=== PATIENT | female | born 1975 | race African-American/Black ===

== ENCOUNTER 2019-11-28 18:28 | Emergency (ER) | payer MEDICAID ==
[~2019-11-28] VITALS: Ht 157.5 cm; Wt 81.6 kg
[2019-11-28] MEDS ORDERED: DEXAMETHASONE 10 MG/ML VIAL IM ONE (20:15)
[2019-11-28 20:23] VITALS: BP 135/85
== END 2019-11-28 20:25 | disposition home or self-care (01) ==
LOC: ER 18:28
DX: T78.49XA Other allergy, initial encounter (principal); X58.XXXA Exposure to other specified factors, initial encounter; Z88.0 Allergy status to penicillin
CPT/HCPCS: 96372; 99283; J1100

== ENCOUNTER 2020-06-07 11:23 | Emergency (ER) | payer MEDICAID ==
[~2020-06-07] VITALS: Ht 160 cm; Wt 72.5 kg
[2020-06-07] MEDS ORDERED: ACETAMINOPHEN 325MG TABLET PO ONE (12:30)
[2020-06-07 14:16] LABS: CLARITY URINE TURBID (CLEAR); COLOR URINE DARK YELLOW (YELLOW); KETONES URINE TRACE (NEGATIVE); LEUKOCYTE ESTERASE URINE NEGATIVE (NEGATIVE); NITRITE URINE NEGATIVE (NEGATIVE); OCCULT BLOOD URINE NEGATIVE (NEGATIVE); PROTEIN URINE TRACE (NEGATIVE); SPECIFIC GRAVITY URINE 1.034 (1.005-1.030); UROBILINOGEN URINE 0.2 E.U./dL (0.2-1.0)
[2020-06-07 14:22] LABS: UCG SCREEN NEGATIVE
[2020-06-07] MEDS ORDERED: DEXAMETHASONE 4MG TABLET PO ONE (15:15)
[2020-06-07 15:40] VITALS: BP 122/78
== END 2020-06-07 15:40 | disposition home or self-care (01) ==
LOC: ER 11:23
DX: U07.1 COVID-19 (principal); J18.9 Pneumonia, unspecified organism
CPT/HCPCS: 71045; 81003; 81025; 87635; 93005; 99285; C9803; J8540

== ENCOUNTER 2021-08-27 06:57 | Emergency (ER) | payer MEDICAID ==
[~2021-08-27] VITALS: Ht 157.5 cm; Wt 78.0 kg
[2021-08-27] MEDS ORDERED: DEXAMETHASONE 4MG TABLET PO ONE (09:00)
[2021-08-27 09:16] LABS: BASOPHILS % 0.3 % (0.0-2.0); EOSINOPHILS % 0.1 % (0.0-5.0); HEMATOCRIT. 38.3 % (36.0-48.0); HEMOGLOBIN. 13.2 g/dL (12.0-16.0); LYMPHOCYTES % 11.5 % (20.0-50.0); MEAN CORPUSCULAR HEMOGLOBIN 28.2 pg (28.0-32.0); MEAN PLATELET VOLUME 9.9 fl (7.4-10.4); MONOCYTES % 8.4 % (2.0-8.0); NEUTROPHILS % 79.7 % (40.0-76.0); PLATELET 210 x1000/uL (130-400); RED BLOOD CELL COUNT 4.67 mill/uL (4.2-5.4); RED CELL DISTRIBUTION WIDTH 14.3 % (11.6-14.6)
[2021-08-27 09:22] LABS: CHLORIDE 104 mEq/L (98-107)
[2021-08-27] MEDS ORDERED: DEXTL MT (10:47)
[2021-08-27] MEDS ORDERED: KETOROLAC 15MG/ML VIAL IM NR (11:00)
[2021-08-27 11:01] VITALS: BP 127/89
== END 2021-08-27 11:02 | disposition home or self-care (01) ==
LOC: ER 08:28
DX: J06.9 Acute upper respiratory infection, unspecified (principal); R00.0 Tachycardia, unspecified; Z86.16 Personal history of COVID-19
CPT/HCPCS: 36415; 71045; 80053; 83880; 84484; 85025; 93005; 99285; Z7610; J8540

== ENCOUNTER 2021-11-07 03:07 | Emergency (ER) | payer MEDICAID, OTHER ==
[~2021-11-07] VITALS: Ht 157.5 cm; Wt 87.5 kg
[~2021-11-07 03:07] MED LIST: DEXTL MT
[2021-11-07 03:09] VITALS: BP 150/86
[2021-11-07] MEDS ORDERED: KETOROLAC 30MG/ML VIAL IM ONE (03:45)
[2021-11-07] MEDS ORDERED: CYCLOBENZAPRINE 10MG TABLET PO ONE (03:45)
[2021-11-07] MEDS ORDERED: IBUP-2030 MT (04:21)
[2021-11-07] MEDS ORDERED: CYCL10TA7 MT (04:21)
== END 2021-11-07 04:43 | disposition home or self-care (01) ==
LOC: ER 03:07
DX: M62.838 Other muscle spasm (principal)
CPT/HCPCS: 73030; 96372; 99283; J1885

== ENCOUNTER 2022-02-28 09:28 | Emergency (ER) | payer MEDICAID ==
[~2022-02-28] VITALS: Ht 157.5 cm; Wt 95.0 kg
[~2022-02-28 09:28] MED LIST changes: +CYCL10TA21 MT; +IBUP-2030 MT
[2022-02-28 09:48] VITALS: BP 136/88
[2022-02-28 10:37] LABS: CLARITY URINE CLOUDY (CLEAR); COLOR URINE YELLOW (YELLOW); KETONES URINE NEGATIVE (NEGATIVE); LEUKOCYTE ESTERASE URINE 2+ (NEGATIVE); NITRITE URINE POSITIVE (NEGATIVE); OCCULT BLOOD URINE NEGATIVE (NEGATIVE); PH URINE 5.5 (4.5-8.0); PROTEIN URINE NEGATIVE (NEGATIVE); SPECIFIC GRAVITY URINE 1.026 (1.005-1.030)
[2022-02-28] MEDS ORDERED: NITR-87 MT (11:28)
== END 2022-02-28 11:45 | disposition home or self-care (01) ==
LOC: ER 09:28
DX: R30.0 Dysuria (principal); Z88.0 Allergy status to penicillin; Z98.890 Other specified postprocedural states
CPT/HCPCS: 81003; 81025; 87077; 87186; 99283

== ENCOUNTER 2022-04-03 23:21 | Emergency (ER) | payer MEDICAID, OTHER ==
[~2022-04-03] VITALS: Ht 157.5 cm; Wt 82.0 kg
[~2022-04-03 23:21] MED LIST changes: +NITR-87 MT
[2022-04-03 23:34] VITALS: BP 130/94
== END 2022-04-04 03:24 | disposition left against medical advice (07) ==
LOC: ER 23:21
DX: Z53.21 Procedure and treatment not carried out due to patient leaving prior to being seen by health care provider (principal)

== ENCOUNTER 2025-03-05 09:40 | Emergency (ER) | payer MEDICAID ==
[~2025-03-05] VITALS: Ht 162.6 cm; Wt 85.0 kg
[2025-03-05 09:54] VITALS: O2SAT 100
[2025-03-05 12:06] VITALS: BP 134/79; PULSE 71; RESP 16; TEMP 36.9; O2SAT 100
== END 2025-03-05 12:11 | disposition home or self-care (01) ==
LOC: ER 09:40
DX: M79.644 Pain in right finger(s) (principal); I10 Essential (primary) hypertension; Z88.0 Allergy status to penicillin
CPT/HCPCS: 29130; 73140; 99283